=== PATIENT | male | born 1970 | race Caucasian/White ===

== ENCOUNTER 2017-05-01 20:54 | Emergency (ER) | payer OTHER ==
[~2017-05-01] VITALS: Ht 180.3 cm; Wt 88.6 kg
[~2017-05-01 20:54] MED LIST: ADDERALL5 MG PO; BENADRYL50 MG PO; NO HOME MEDS; PREDNISONE50 MG PO; SUBOXONE 8 M1 TABLET SL; SUBUTEX8 MG SL; ULTRAM50 MG PO
[2017-05-01 21:24] LABS: EOSINOPHIL (%) 1.2 % (0-5); EOSINOPHIL COUNT 0.1 K/uL (0-0.3); HEMATOCRIT 37.2 % (38.0-50.0); IMMATURE GRANULOCYTE (%) 0.3 % (0.0-0.7); LYMPHOCYTE COUNT 1.5 K/uL (1.0-2.8); MCH 29.1 PG (29.0-34.0); MCHC 33.1 G/DL (30.0-36.0); MCV 87.9 FL (86-99); MEAN PLAT.VOLUME 9.7 uM^3 (9.0-12.4); MONOCYTE COUNT 0.9 K/uL (0-0.8); NEUTROPHIL (%) 73.9 % (45-76); PLATELET COUNT 269 K/uL (156-360); RBC DIS.WIDTH-CV 13.1 % (11.8-14.6); RBC DIS.WIDTH-SD 42.3 % (39-53); RED BLOOD COUNT 4.23 M/uL (4.00-5.50); WHITE BLOOD COUNT 9.4 K/uL (4.1-10.2)
[2017-05-01 21:35] LABS: CHLORIDE 104 mEq/L (99-109); SODIUM 135 mEq/L (136-147)
[2017-05-01 21:37] LABS: GLUCOSE 89 mg/dL (70-99)
[2017-05-01 21:38] LABS: ANION GAP 9 MEQ/L (2-14)
[2017-05-01 21:40] LABS: SERUM ETHYL ALCOHOL < 10 mg/dL
[2017-05-01 21:41] LABS: GFR ESTIMATE (CALCULATED) > 59 mL/min/; UREA NITROGEN (BUN) 13 mg/dL (9-23)
[2017-05-01 21:44] LABS: POTASSIUM 6.1 mEq/L (3.7-5.4)
[2017-05-01 23:39] LABS: CHLORIDE 106 mEq/L (99-109); SODIUM 138 mEq/L (136-147)
[2017-05-01 23:40] LABS: GLUCOSE 88 mg/dL (70-99)
[2017-05-01 23:41] LABS: POTASSIUM 4.4 mEq/L (3.7-5.4)
[2017-05-01 23:42] LABS: ANION GAP 10 MEQ/L (2-14)
[2017-05-01 23:44] LABS: GFR ESTIMATE (CALCULATED) > 59 mL/min/
[2017-05-01 23:45] LABS: UREA NITROGEN (BUN) 11 mg/dL (9-23)
[2017-05-02 02:46] VITALS: BP 105/50
== END 2017-05-02 04:49 | disposition home or self-care (01) ==
LOC: EME → EDBD 20:54 → EME 05-02 04:49
PROVIDERS: Emergency Medicine
DX: T50.901A Poisoning by unspecified drugs, medicaments and biological substances, accidental (unintentional), initial encounter (principal); E87.5 Hyperkalemia; R00.1 Bradycardia, unspecified; F11.20 Opioid dependence, uncomplicated; F17.200 Nicotine dependence, unspecified, uncomplicated; F90.9 Attention-deficit hyperactivity disorder, unspecified type; R06.02 Shortness of breath
CPT/HCPCS: 71010; 80048; 80048 91; 85025; 93005; 94644; 99281; 99284; G0480